=== PATIENT | male | born 1965 ===

== ENCOUNTER 2022-02-21 11:00 | Day surgery (SDC) | payer BC ==
[~2022-02-21 11:00] MED LIST: EPINEPHrine 1 MG/ML 30 ML MDV IRR SCH; Lactated Ringers 1,000 ML IV SCH; Lidocaine 1% 4 ML ONE; Lidocaine 1%/Sod Bicarbonate in NS 8.4% 1 ML Syringe IDERM PRN; Midazolam 1 MG/ML 2 ML SDV ONE; Propofol 200 MG/20 ML SDV ONE; Sodium Chloride 0.9% 10 ML Syringe FLUSH PRN; Sodium Chloride 0.9% 10 ML Syringe FLUSH SCH; fentaNYL 100 MCG/2 ML SDV ONE
[2022-02-21] MEDS ORDERED: Bupivacaine 0.25% 10 ML SDV ONE (11:32)
[2022-02-21] MEDS ORDERED: ceFAZolin 2 GM Vial ONE (11:53)
[2022-02-21] MEDS ORDERED: diphenhydrAMINE 50 MG/ML SDV IVPUSH PRN (12:44)
[2022-02-21] MEDS ORDERED: fentaNYL 100 MCG/2 ML SDV IVPUSH PRN (12:44)
[2022-02-21] MEDS ORDERED: Ondansetron 4 MG/2 ML SDV IVPUSH PRN (12:44)
[2022-02-21] MEDS ORDERED: fentaNYL 100 MCG/2 ML SDV ONE (12:59)
[2022-02-21] MEDS ORDERED: Ondansetron 4 MG/2 ML SDV ONE (13:02)
[2022-02-21] MEDS ORDERED: Ketorolac 30 MG/ML SDV ONE (13:02)
[2022-02-21] MEDS ORDERED: Acetaminophen/HYDROcodone 325-5 MG Tab PO SCH (13:51)
== END 2022-02-21 14:40 | disposition home or self-care (01) ==
LOC: JD.SDS 11:00
PROVIDERS: ATTEND Orthopaedic Surgery
DX: S83.242A Other tear of medial meniscus, current injury, left knee, initial encounter (principal); M22.42 Chondromalacia patellae, left knee; Z79.899 Other long term (current) drug therapy; Z79.82 Long term (current) use of aspirin
CPT/HCPCS: 29881; J0171; J0690; J1885; J2250; J2405; J2704; J3010; J3490; J7120; 01400